=== PATIENT | female | born 1980 | race Caucasian/White ===

== ENCOUNTER 2018-01-20 12:27 | Outpatient (CLI) | payer MEDICAID, SELFPAY ==
[2018-01-20 12:31] VITALS: BP 118/72; PULSE 71; RESP 16; TEMP 35.9; O2SAT 100
--- NOTE | 2018-01-20 13:30 | DI.RAD_ITS ---
SYMPTOMS/DIAGNOSIS: SACROILIAC JOINT DYSFUNCTION PAIN CLINIC SACROILIAC JOINT: Fluoroscopy Time: 38.3 sec Fluoroscopy was utilized by Dr. Linares during the performance of a right sacroiliac joint injection. Please refer to the procedure report for complete details.
--- NOTE | 2018-01-20 13:30 | PDOC.PAIN ---
Pain Clinic Procedure Note Current Active Problems Problem Status Onset Sacroiliitis Chronic INTRA-ARTICULAR SI JOINT INJECTION ANN PARTIDA has been referred to the [facility] for intra-articular SI joint injection. COMMENTS: Right sided sacral pain Patient was interviewed and the medical record reviewed. There were no medical, pharmacologic, radiographic or other structural contraindications to attempting fluoroscopically guided intra-articular SI joint injection. Risks and expected side effects as well as potential benefit of the procedure were reviewed and voiced concerns addressed. The printed consent form was signed and witnessed. Standard time-out procedure was performed. Patient was placed in the prone position on the fluoroscopy table and automated blood pressure cuff and pulse oximeter applied. The skin entry point for approaching {right/ } SI joints was identified under the most advantageous fluoroscopic view and marked. Following thorough Chlorhexadine preparation of the skin and draping and 1% lidocaine infiltration of the skin entry point and subcutaneous tissues, a 22 gauge spinal needle was placed under fluoroscopic guidance into {right} SI joints was identified under the most advantageous fluoroscopic view and marked. Following thorough Chlorhexadine preparation of the skin and draping and 1% lidocaine infiltration of the skin entry point and subcutaneous tissues, a 22 gauge spinal needle was placed under fluoroscopic guidance into { right } SI joint. Intra-articular placement was confirmed by a clear arthrogram resulting from the injection of 0.25ml Omnipaque 240, 1ml 0.5% bupivacaine, and half ml (40mg) of 80mg concentration Depomedrol were injected intra-articularily with an initial reproduction of a significant component of the usual pain. Vital signs were stable throughout the procedure and were as recorded in the docflowsheet by the nursing staff. If given, dosages of intravenous drugs for anxiolysis and analgesia were documented in MAR. Follow up plans and appointments were discussed with the patient. Post procedure instruction was given as documented in nursing documentation and having met discharge criteria, and was discharged from the [facility]. COMMENTS: Pain went from 6/10 to 0/10. Follow-up as needed. Repeat as needed. CC: HALEY HUTSON
--- NOTE | 2018-01-20 13:33 | PDOC.PAIN_ITS ---
Pain Clinic Procedure Note Current Active Problems Problem Status Onset Sacroiliitis Chronic INTRA-ARTICULAR SI JOINT INJECTION ANN PARTIDA has been referred to the [facility] for intra- articular SI joint injection. COMMENTS: Right sided sacral pain Patient was interviewed and the medical record reviewed. There were no medical , pharmacologic, radiographic or other structural contraindications to attempting fluoroscopically guided intra-articular SI joint injection. Risks and expected side effects as well as potential benefit of the procedure were reviewed and voiced concerns addressed. The printed consent form was signed and witnessed. Standard time-out procedure was performed. Patient was placed in the prone position on the fluoroscopy table and automated blood pressure cuff and pulse oximeter applied. The skin entry point for approaching {right/ } SI joints was identified under the most advantageous fluoroscopic view and marked. Following thorough Chlorhexadine preparation of the skin and draping and 1% lidocaine infiltration of the skin entry point and subcutaneous tissues, a 22 gauge spinal needle was placed under fluoroscopic guidance into {right} SI joints was identified under the most advantageous fluoroscopic view and marked. Following thorough Chlorhexadine preparation of the skin and draping and 1% lidocaine infiltration of the skin entry point and subcutaneous tissues, a 22 gauge spinal needle was placed under fluoroscopic guidance into { right } SI joint. Intra-articular placement was confirmed by a clear arthrogram resulting from the injection of 0.25ml Omnipaque 240, 1ml 0.5% bupivacaine, and half ml (40mg) of 80mg concentration Depomedrol were injected intra- articularily with an initial reproduction of a significant component of the usual pain. Vital signs were stable throughout the procedure and were as recorded in the docflowsheet by the nursing staff. If given, dosages of intravenous drugs for anxiolysis and analgesia were documented in MAR. Follow up plans and appointments were discussed with the patient. Post procedure instruction was given as documented in nursing documentation and having met discharge criteria, and was discharged from the [facility]. COMMENTS: Pain went from 6/10 to 0/10. Follow-up as needed. Repeat as needed. CC: HALEY HUTSON
[2018-01-20] MEDS: Omnipaque 240 MG/ML 50 ML BTL IJ (13:41)
[2018-01-20] MEDS: methylPREDNISolone ACETATE 80 MG/ML VIAL IJ (13:41)
[2018-01-20 13:42] VITALS: BP 116/65; RESP 16; O2SAT 100
== END 2018-01-20 12:47 ==
PROVIDERS: PCP Family Medicine; Visit Provider Anesthesiology Pain Medicine
DX: M46.1 Sacroiliitis, not elsewhere classified (principal); G89.29 Other chronic pain
CPT/HCPCS: 27096; 72200; J1040; Q9967

== ENCOUNTER 2018-02-09 09:25 | Outpatient (CLI) | payer MEDICAID, SELFPAY ==
--- NOTE | 2018-02-09 06:00 | DI.RAD_ITS ---
SYMPTOM/DIAGNOSIS: LUMBAR RADICULOPATHY C-ARM: Fluoroscopy Time: 37.7 seconds Fluoroscopy was provided for guidance with lumbar spine pain clinic injection. Please see procedure note for details.
[2018-02-09 09:35] VITALS: BP 104/68; PULSE 79; RESP 18; TEMP 35.8; O2SAT 100
[2018-02-09] MEDS: methylPREDNISolone ACETATE 40 MG/ML VIAL IJ (10:30)
--- NOTE | 2018-02-09 10:42 | PDOC.PAIN ---
Pain Clinic Procedure Note Current Active Problems Problem Status Onset Lumbar radicular syndrome Chronic LUMBAR / SACRAL TRANSFORAMINAL INJECTION ANN PARTIDA has been referred to the [facility] for a transforaminal nerve root block and steroid injection. COMMENT: Patient has back pain radiating around her hip down her leg below the knee but not into the foot. She had one SI injection which only gave her very transient relief. Today the plan is to proceed with a right L5 transforaminal injection. She has moderate to severe stenosis on the right at L5 Patient was interviewed and the medical record reviewed. There were no medical, pharmacologic, radiographic or other structural contraindications to attempting fluoroscopically guided transforaminal nerve root block and epidural steroid injection. Risks and expected side effects as well as potential benefit of the procedure were reviewed and voiced concerns addressed. The printed consent form was signed and witnessed. Standard time-out procedure was performed. Patient was placed in the prone position on the fluoroscopy table and automated blood pressure cuff and pulse oximeter applied. Fluoroscopy was utilized to identify the {right/} neural foramen between L5 and S1 . A skin zeenat was made for the needle insertion site. A Chlorhexadine prep was carried out, and sterile drapes were applied. Local anesthesia was achieved in the skin and subcutaneous tissues. A 5 inch 22 gauge curved tip spinal needle was then inserted, advanced with fluoroscopic guidance into the neural foramen, confirmed on the lateral view. After negative aspiration, 2 ml of Omnipaque 240 was injected confirming position in A/P and lateral views. This showed a good spread of dye transforaminally into the epidural space. There was no vascular update with contrast injection under continuous fluoroscopy and digital substraction. 40 mg of Depo-Medrol was injected, followed by 0.5 ml of 0.5 % bupivacaine flush for the nerve root block, as well. There was no unusual discomfort expressed.The needle was withdrawn. The patient tolerated the procedure well. A Band-Aid was applied. Vital signs were stable throughout the procedure and were as recorded in nursing records. If given, dosages of intravenous drugs for anxiolysis and analgesia were documented in nursing records. Follow up plans and appointments were discussed. Post procedure instruction was given as documented in nursing records and patient was discharged in the care of an identified p d driver. COMMENTS: Pain went from 09/27-06/27. Patient will follow-up as needed. Could repeat as needed if repeated would use a 7 inch needle. If not improving consider surgical evaluation. CC: HALEY HUTSON
--- NOTE | 2018-02-09 10:46 | PDOC.PAIN_ITS ---
Pain Clinic Procedure Note Current Active Problems Problem Status Onset Lumbar radicular syndrome Chronic LUMBAR / SACRAL TRANSFORAMINAL INJECTION ANN PARTIDA has been referred to the [facility] for a transforaminal nerve root block and steroid injection. COMMENT: Patient has back pain radiating around her hip down her leg below the knee but not into the foot. She had one SI injection which only gave her very transient relief. Today the plan is to proceed with a right L5 transforaminal injection. She has moderate to severe stenosis on the right at L5 Patient was interviewed and the medical record reviewed. There were no medical , pharmacologic, radiographic or other structural contraindications to attempting fluoroscopically guided transforaminal nerve root block and epidural steroid injection. Risks and expected side effects as well as potential benefit of the procedure were reviewed and voiced concerns addressed. The printed consent form was signed and witnessed. Standard time-out procedure was performed. Patient was placed in the prone position on the fluoroscopy table and automated blood pressure cuff and pulse oximeter applied. Fluoroscopy was utilized to identify the {right/} neural foramen between L5 and S1 . A skin zeenat was made for the needle insertion site. A Chlorhexadine prep was carried out, and sterile drapes were applied. Local anesthesia was achieved in the skin and subcutaneous tissues. A 5 inch 22 gauge curved tip spinal needle was then inserted, advanced with fluoroscopic guidance into the neural foramen, confirmed on the lateral view. After negative aspiration, 2 ml of Omnipaque 240 was injected confirming position in A/P and lateral views. This showed a good spread of dye transforaminally into the epidural space. There was no vascular update with contrast injection under continuous fluoroscopy and digital substraction. 40 mg of Depo-Medrol was injected, followed by 0.5 ml of 0.5 % bupivacaine flush for the nerve root block, as well. There was no unusual discomfort expressed.The needle was withdrawn. The patient tolerated the procedure well. A Band-Aid was applied. Vital signs were stable throughout the procedure and were as recorded in nursing records. If given, dosages of intravenous drugs for anxiolysis and analgesia were documented in nursing records. Follow up plans and appointments were discussed. Post procedure instruction was given as documented in nursing records and patient was discharged in the care of an identified tow bar driver. COMMENTS: Pain went from 09/27-06/27. Patient will follow-up as needed. Could repeat as needed if repeated would use a 7 inch needle. If not improving consider surgical evaluation. CC: HALEY HUTSON
[2018-02-09] MEDS: Bupivacaine 0.5% Pres-Free 30 ML VIAL IJ (10:53)
[2018-02-09] MEDS: Omnipaque 240 MG/ML 50 ML BTL IJ (10:53)
[2018-02-09 10:54] VITALS: BP 114/64; PULSE 64; RESP 15; O2SAT 100
== END 2018-02-09 09:45 ==
PROVIDERS: PCP Family Medicine; Visit Provider Anesthesiology Pain Medicine
DX: M54.16 Radiculopathy, lumbar region (principal); G89.29 Other chronic pain
CPT/HCPCS: 64483; 72100; J1030; Q9967

== ENCOUNTER 2018-03-03 09:45 | Outpatient (CLI) | payer MEDICAID, SELFPAY ==
--- NOTE | 2018-03-03 06:00 | DI.RAD_ITS ---
SYMPTOMS/DIAGNOSIS: LUMBAR RADICULOPATHY, TRANSFORAMINAL EPIDURAL STEROID INJECTION C-ARM FLUOROSCOPY: Fluoroscopy Time: 43.6 sec, 34.22 mGy C-arm fluoroscopy was utilized by Dr. Linares during reported transforaminal epidural steroid injection. Hardcopy shows injection in the transforaminal region at what appears to be L 5 - S 1 on the right.
[2018-03-03 10:08] VITALS: BP 94/68; PULSE 58; RESP 18; TEMP 35.6; O2SAT 100
--- NOTE | 2018-03-03 10:59 | PDOC.PAIN ---
Pain Clinic Procedure Note Current Active Problems Problem Status Onset Lumbar radicular syndrome Chronic LUMBAR / SACRAL TRANSFORAMINAL INJECTION ANN PARTIDA has been referred to the [facility] for a transforaminal nerve root block and steroid injection. COMMENTS: Patient has no pain with severe stenosis at L5. She had one previous transforaminal injection which gave her very transient relief Patient was interviewed and the medical record reviewed. There were no medical, pharmacologic, radiographic or other structural contraindications to attempting fluoroscopically guided transforaminal nerve root block and epidural steroid injection. Risks and expected side effects as well as potential benefit of the procedure were reviewed and voiced concerns addressed. The printed consent form was signed and witnessed. Standard time-out procedure was performed. Patient was placed in the prone position on the fluoroscopy table and automated blood pressure cuff and pulse oximeter applied. Fluoroscopy was utilized to identify the {right} neural foramen between L5 and S1 . A skin zeenat was made for the needle insertion site. A Chlorhexadine prep was carried out, and sterile drapes were applied. Local anesthesia was achieved in the skin and subcutaneous tissues. A 22 gauge curved tip spinal needle was then inserted, advanced with fluoroscopic guidance into the neural foramen, confirmed on the lateral view. After negative aspiration, 2 ml of Omnipaque 240 was injected confirming position in A/P and lateral views. This showed a good spread of dye transforaminally into the epidural space. There was no vascular update with contrast injection under continuous fluoroscopy and digital substraction. 60 mg of Depo-Medrol was injected, followed by 0.5 ml of 0.5% bupivacaine flush for the nerve root block, as well. There was no unusual discomfort expressed.The needle was withdrawn. The patient tolerated the procedure well. A Band-Aid was applied. Vital signs were stable throughout the procedure and were as recorded in nursing records. If given, dosages of intravenous drugs for anxiolysis and analgesia were documented in nursing records. Follow up plans and appointments were discussed. Post procedure instruction was given as documented in nursing records and patient was discharged in the care of an identified stock driver. COMMENTS: Pain went from 10/27-06/27. If she gets good long-lasting relief can repeat otherwise she will follow-up at [facility] for surgical evaluation CC: HALEY HUTSON
[2018-03-03] MEDS: methylPREDNISolone ACETATE 40 MG/ML VIAL IJ (11:10)
[2018-03-03] MEDS: Omnipaque 240 MG/ML 50 ML BTL IJ (11:10)
[2018-03-03] MEDS: Bupivacaine 0.5% Pres-Free 10 ML VIAL IJ (11:11)
[2018-03-03 11:12] VITALS: BP 106/61; PULSE 66; RESP 15; O2SAT 100
--- NOTE | 2018-03-03 11:12 | PDOC.PAIN_ITS ---
Pain Clinic Procedure Note Current Active Problems Problem Status Onset Lumbar radicular syndrome Chronic LUMBAR / SACRAL TRANSFORAMINAL INJECTION ANN PARTIDA has been referred to the [facility] for a transforaminal nerve root block and steroid injection. COMMENTS: Patient has no pain with severe stenosis at L5. She had one previous transforaminal injection which gave her very transient relief Patient was interviewed and the medical record reviewed. There were no medical , pharmacologic, radiographic or other structural contraindications to attempting fluoroscopically guided transforaminal nerve root block and epidural steroid injection. Risks and expected side effects as well as potential benefit of the procedure were reviewed and voiced concerns addressed. The printed consent form was signed and witnessed. Standard time-out procedure was performed. Patient was placed in the prone position on the fluoroscopy table and automated blood pressure cuff and pulse oximeter applied. Fluoroscopy was utilized to identify the {right} neural foramen between L5 and S1 . A skin zeenat was made for the needle insertion site. A Chlorhexadine prep was carried out, and sterile drapes were applied. Local anesthesia was achieved in the skin and subcutaneous tissues. A 22 gauge curved tip spinal needle was then inserted, advanced with fluoroscopic guidance into the neural foramen, confirmed on the lateral view. After negative aspiration, 2 ml of Omnipaque 240 was injected confirming position in A/P and lateral views. This showed a good spread of dye transforaminally into the epidural space. There was no vascular update with contrast injection under continuous fluoroscopy and digital substraction. 60 mg of Depo-Medrol was injected, followed by 0.5 ml of 0.5% bupivacaine flush for the nerve root block, as well. There was no unusual discomfort expressed.The needle was withdrawn. The patient tolerated the procedure well. A Band-Aid was applied. Vital signs were stable throughout the procedure and were as recorded in nursing records. If given, dosages of intravenous drugs for anxiolysis and analgesia were documented in nursing records. Follow up plans and appointments were discussed. Post procedure instruction was given as documented in nursing records and patient was discharged in the care of an identified transit driver. COMMENTS: Pain went from 10/27-06/27. If she gets good long-lasting relief can repeat otherwise she [place] [facility] [place] CC: HALEY HUTSON
== END 2018-03-03 10:05 ==
PROVIDERS: PCP Family Medicine; Visit Provider Anesthesiology Pain Medicine
DX: M54.16 Radiculopathy, lumbar region (principal); G89.29 Other chronic pain
CPT/HCPCS: 64483; 72100; J1030; Q9967

== ENCOUNTER 2018-04-29 00:24 | Outpatient (CLI) | payer MEDICAID, SELFPAY ==
--- NOTE | 2018-04-29 15:21 | DI.MRI_ITS ---
SYMPTOMS/DIAGNOSIS: RADICULAR PAIN, H/O RIGHT FORAMINAL NARROWING AT L5-S1 MRI OF THE LUMBAR SPINE: Comparison is made with outside study of January,. T1, T2 and STIR sagittal and T1 and T2 axial sequences were performed. The vertebral bodies and discs are well maintained in height. At L5-S1, there is again noted to be an asymmetric endplate osteophyte encroaching into the left neural foramen. This does not appear significantly changed. There are mild facet degenerative changes contributing to the neural foraminal narrowing. There is no significant left neural foraminal narrowing. There is no evidence of disc herniation at any level. There is no central canal stenosis. IMPRESSION: Stable moderate to severe narrowing of the right neural foramen at L5-S1 secondary to a combination of facet degenerative changes and laterally projecting endplate osteophyte.
== END 2018-04-29 00:44 ==
PROVIDERS: PCP Family Medicine; Visit Provider Nurse Practitioner Family
DX: M54.17 Radiculopathy, lumbosacral region (principal); M47.27 Other spondylosis with radiculopathy, lumbosacral region
CPT/HCPCS: 72148

== ENCOUNTER 2018-07-20 12:43 | Outpatient (REF) | payer MEDICAID, SELFPAY ==
[2018-07-23 11:34] LABS: 6-monoacetylmorphine Not Detected ng/mL (Cutoff: 25); Amphetamines Negative ng/mL (Cutoff: 500); Barbiturates Negative ng/mL (Cutoff: 200); Benzodiazepines Presumptive Positive ng/mL (Cutoff: 100); Buprenorphine Not Detected ng/mL (Cutoff: 5); Cocaine Negative ng/mL (Cutoff: 150); Codeine Not Detected ng/mL (Cutoff: 25); Comment Normal; Creatinine, U 79.9 mg/dL; Dihydrocodeine Not Detected ng/mL (Cutoff: 25); EDDP Not Detected ng/mL (Cutoff: 25); Fentanyl Not Detected ng/mL (Cutoff: 2); Hydrocodone Present ng/mL (Cutoff: 25); Hydromorphone Not Detected ng/mL (Cutoff: 25); Hydromorphone-3-beta-glucuroni Not Detected ng/mL (Cutoff: 100); Meperidine Not Detected ng/mL (Cutoff: 25); Methadone Not Detected ng/mL (Cutoff: 25); Morphine Not Detected ng/mL (Cutoff: 25); N-desmethyltapentadol Not Detected ng/mL (Cutoff: 50); Naloxone Not Detected ng/mL (Cutoff: 25); Norbuprenorphine Not Detected ng/mL (Cutoff: 5); Norfentanyl Not Detected ng/mL (Cutoff: 2); Norhydrocodone Present ng/mL (Cutoff: 25); Normeperidine Not Detected ng/mL (Cutoff: 25); Noroxycodone Not Detected ng/mL (Cutoff: 25); Noroxymorphone Not Detected ng/mL (Cutoff: 25); O-desmethyltramadol Not Detected ng/mL (Cutoff: 25); Phencyclidine Negative ng/mL (Cutoff: 25); Propoxyphene Not Detected ng/mL (Cutoff: 25); Specific Gravity 1.009; Tapentadol Not Detected ng/mL (Cutoff: 25); Tetrahydrocannabinol Negative ng/mL (Cutoff: 50); Tramadol Not Detected ng/mL (Cutoff: 25); pH 7.4
[2018-07-23 11:45] LABS: 2-OH-Ethyl-Flurazepam Negative ng/mL (Cutoff: 100); 7-NH-Clonazepam Negative ng/mL (Cutoff: 100); 7-NH-Flunitrazepam Negative ng/mL (Cutoff: 50); Alpha OH-Alprazolam Negative ng/mL (Cutoff: 100); Alpha-OH-Triazolam Negative ng/mL (Cutoff: 100); Benzodiazepines Interpretation Positive.; Lorazepam Negative ng/mL (Cutoff: 100); Temazepam 480 ng/mL (Cutoff: 100)
== END 2018-07-20 13:03 ==
LOC: LBN 12:43
PROVIDERS: PCP Family Medicine; Visit Provider Nurse Practitioner Family
DX: Z79.891 Long term (current) use of opiate analgesic (principal)
CPT/HCPCS: 80307; 80364; 80346

== ENCOUNTER 2018-07-27 12:29 | Outpatient (CLI) | payer MEDICAID, SELFPAY ==
[2018-07-27 12:36] VITALS: BP 118/69; PULSE 95; RESP 20; TEMP 36; O2SAT 100
--- NOTE | 2018-07-27 13:06 | DI.RAD_ITS ---
SYMPTOMS/DIAGNOSIS: LUMBAR SPONDYLOSIS PAIN CLINIC LUMBAR SPINE: Fluoroscopy Time: 27.1 sec Fluoroscopy was utilized by Dr. Berry during the performance of a lumbar medial branch block. Please refer to the procedure report for complete details.
--- NOTE | 2018-07-27 13:20 | PDOC.PAIN ---
Pain Clinic Procedure Note Current Active Problems Problem Status Onset Spondylosis of lumbar region without myelopathy or radiculopathy Acute Lumbar/Sacral Medial Branch Blocks ANN PARTIDA has been referred to the [facility] for lumbar/sacral medial branch blocks. COMMENTS: I reviewed Ms. Heredia's note from our clinic dated 07/20/18. Patient was interviewed and the medical record reviewed. There were no medical, pharmacologic, radiographic or other structural contraindications to attempting fluoroscopically guided local anesthetic lumbar/sacral medial branch blocks. Risks and expected side effects as well as potential benefit of the procedure were reviewed and voiced concerns addressed. The printed consent form was signed and witnessed. Standard time-out procedure was performed. Patient was placed in the prone position on the fluoroscopy table and automated blood pressure cuff and pulse oximeter applied. The skin entry points for approaching the anatomic target points of the segmental medial branches of right L3-L5DR were identified with anfluoroscopy and marked. Following thorough Chlorhexadine preparation of the skin and draping and 1% lidocaine infiltration of the skin entry points and subcutaneous tissues, a 22 gauge 5 spinal needle was placed under fluoroscopic guidance down on to the target point for each respective segmental medial branch.Position was confirmed in A/P, oblique and lateral views with 0.25ml of omnipaque 240. At this point .5ml of 0.5% Bupivacaine was injected at each segmental nerve. Vital signs were stable throughout the procedure and were as recorded in the docflowsheet by the nursing staff. Follow up plans and appointments were discussed and was instructed to keep careful note of how the usual pain was modified by these injections. Specifically was asked to keep a pain diary for the next 24 hours using a numeric pain scale of 0-10 and report these results at the follow-up visit. Post procedure instruction was given as documented in the nursing documentation and having met discharge criteria. Patient was discharged from the [facility]. Based on the medial branches blocked today, if the patient has adequate relief and we are able to proceed to radiofrequency ablation, the treatment should result in the denervation of the right L4-L5 and L5-S1 FACET JOINTS. We would expect to denervate a total of 2 facets during the radiofrequency ablation. COMMENTS:She will call back with her 1-4 hour post-procedure pain scores for the right side of her low back. CC: Ministerio Paredes
[2018-07-27 13:25] VITALS: BP 114/61; PULSE 75; RESP 14; O2SAT 100
[2018-07-27] MEDS: Bupivacaine 0.5% Pres-Free 10 ML VIAL IJ (13:26)
[2018-07-27] MEDS: Omnipaque 240 MG/ML 50 ML BTL IJ (13:27)
== END 2018-07-27 12:49 ==
PROVIDERS: PCP Family Medicine; Visit Provider Preventive Medicine Occupational Medicine
DX: M47.816 Spondylosis without myelopathy or radiculopathy, lumbar region (principal)
CPT/HCPCS: 64493; 64494; 72100; Q9967

== ENCOUNTER 2018-08-10 11:53 | Outpatient (CLI) | payer MEDICAID, SELFPAY ==
[2018-08-10 12:07] VITALS: BP 104/68; PULSE 72; RESP 18; TEMP 35.7; O2SAT 100
--- NOTE | 2018-08-10 12:40 | DI.RAD_ITS ---
SYMPTOMS/DIAGNOSIS: LUMBAR SPONDYLOSIS PAIN CLINIC LUMBAR SPINE: Fluoroscopy Time: 40.2 sec., 12.81 mGy. C-arm fluoroscopy was provided for guidance with lumbar spine Pain Clinic injections. Please see procedure note for details.
--- NOTE | 2018-08-10 12:41 | PDOC.PAIN_ITS ---
Pain Clinic Procedure Note Current Active Problems Problem Status Onset Spondylosis of lumbar region without myelopathy or radiculopathy Acute Lumbar/Sacral Medial Branch Blocks #2 ANN PARTIDA has been referred to the [facility] for lumbar/sacral medial branch blocks. COMMENTS: Patient was interviewed and the medical record reviewed. There were no medical, pharmacologic, radiographic or other structural contraindications to attempting fluoroscopically guided local anesthetic lumbar/sacral medial branch blocks. Risks and expected side effects as well as potential benefit of the procedure were reviewed and voiced concerns addressed. The printed consent form was signed and witnessed. Standard time-out procedure was performed. Patient was placed in the prone position on the fluoroscopy table and automated blood pressure cuff and pulse oximeter applied. The skin entry points for ap proaching the anatomic target points of the segmental medial branches of right L3-L5DR were identified with anfluoroscopy and marked. Following thorough Chlorhexadine preparation of the skin and draping and 1% lidocaine infiltration of the skin entry points and subcutaneous tissues, a 22 gauge 5spinal needle was placed under fluoroscopic guidance down on to the target point for each respective segmental medial branch.Position was confirmed in A/P, oblique and lateral views with 0.25ml of omnipaque 240. At this point I injected 0.5cc of 2% Lidocaine at each segmental nerve. Vital signs were stable throughout the procedure and were as recorded in the docflowsheet by the nursing staff. Follow up plans and appointments were discussed and was instructed to keep careful note of how the usual pain was modified by these injections. Specifically was asked to keep a pain diary for the next 24 hours using a numeric pain scale of 0-10 and report these results at the follow-up visit. Post procedure instruction was given as documented in the nursing documentation and having met discharge criteria. Patient was discharged from the [facility]. Based on the medial branches blocked today, if the patient has adequate relief and we are able to proceed to radiofrequency ablation, the treatment should result in the denervation of the right L4-L5 and L5-P8CAOBD JOINTS. We would expect to denervate a total of 2 facets during the radiofrequency ablation. COMMENTS: She will contact us with her 1-4 hour post-procedure pain scores. CC: Ministerio Paredes
[2018-08-10 12:46] VITALS: BP 100/73; PULSE 70; RESP 21; O2SAT 99
[2018-08-10] MEDS: Omnipaque 240 MG/ML 50 ML BTL IJ (12:51)
[2018-08-10] MEDS: Lidocaine 2% Pres-Free 5 ML VIAL IJ (12:53)
== END 2018-08-10 12:13 ==
PROVIDERS: PCP Family Medicine; Visit Provider Preventive Medicine Occupational Medicine
DX: M47.816 Spondylosis without myelopathy or radiculopathy, lumbar region (principal)
CPT/HCPCS: 64493; 64494; 72100; Q9967

== ENCOUNTER 2018-08-17 08:25 | Outpatient (CLI) | payer MEDICAID, SELFPAY ==
[2018-08-17 08:33] VITALS: BP 104/66; PULSE 79; RESP 18; TEMP 36.1; O2SAT 100
[2018-08-17] MEDS: Midazolam 2 MG/2 ML VIAL IVP (09:15)
[2018-08-17] MEDS: Lactated Ringers 1,000 ML 80 ML IV (09:15)
[2018-08-17] MEDS: fentaNYL 100 MCG/2 ML VIAL IVP ×2 (09:15→09:20)
[2018-08-17 09:45] VITALS: BP 132/67; PULSE 77; RESP 22; O2SAT 97
--- NOTE | 2018-08-17 09:49 | PDOC.PAIN_ITS ---
Pain Clinic Procedure Note Current Active Problems Problem Status Onset Spondylosis of lumbar region without myelopathy or radiculopathy Acute LUMBAR/SACRAL MEDIAL BRANCH RADIOFREQUENCY USING THE COOLIEF MACHINE ANN PARTIDA has been [facility] for radiofrequency treatment of chronic axial back pain. ANN has had long standing back pain thought to be facet joint generated and which has been refractory to other therapies. Local anesthetic medial branch blocks or intra-articular facet joint injections resulted in ANN reporting reduction of the usual axial component of pain for at least the duration of the local anesthetic effect. COMMENTS:She did great with the 2 LMBBs (08/10/18 and 07/27/18) Patient was interviewed and the medical record reviewed. There were no medical, pharmacologic, radiographic or other structural contraindications to attempting fluoroscopically guided radiofrequency treatment. Risks and expected side effects as well as potential benefit of the procedure were reviewed and voiced concerns addressed. The printed consent form was signed and witnessed. Standard time-out procedure was performed. Patient was placed in the prone position on the fluoroscopy table and automated blood pressure cuff and pulse oximeter applied. The skin entry points for approaching the anatomic target points of the segmental medial branches of right L3, L4, L5DR, and S1 (lateral branch)) were identified with fluoroscopy and marked. Following thorough Chlorhexadine preparation of the skin and draping and 1% lidocaine infiltration of the skin entry points and subcutaneous tissues, a single 18 guage curved 15 cm 10mm active tip radiofrequency cannula was placed under fluoroscopic guidance along or across the anatomic course of each respective segmental medial branch. Each placement was stimulated at 50Hz and les then 0.5V for medial branch sensory localization and the at 2Hz and up to 3 times the sensory voltage without any evidence of distal myotomal stimulation. 1cc of 1% ;idocaine was injected at each site. At each placement a continuous mode radiofrequency treatment was done at 90 degrees C for 90secs and then rotated 180degrees and then repeated. This radiofrequency treatment should result in the denervation of the right L4- L5 and L5-S1 FACET JOINTS.~ A total of 2 facets were expected to be denervated from today's treatment. Vital signs were stable throughout the procedure and were as recorded in the docflowsheet by the nursing staff. If given, dosages of intravenous drugs for anxiolysis and analgesia were documented in the Medication Administration Record (MAR). Follow up plans and appointments were discussed. Post procedure instruction was given as documented in the nursing documentation and having met discharge criteria, ANN was discharged from the [facility]. COMMENTS: If she obtains pain relief for at least 6 months, we can repeat the RFA without repeating the LMBBs. CC: Ministerio Paredes
--- NOTE | 2018-08-17 09:50 | DI.RAD_ITS ---
SYMPTOM/DIAGNOSIS: RT LUMBAR FREQUENCY ABLATION, LUMBAR SPONDYLOSIS C-ARM: Fluoroscopy Time: 60.4 seconds Fluoroscopy was utilized by Dr. Berry during radiofrequency ablation. Please refer to the procedure report for complete details.
[2018-08-17] MEDS: Lidocaine 2% Pres-Free 5 ML VIAL IJ (09:57)
[2018-08-17] MEDS: Bupivacaine 0.5% Pres-Free 10 ML VIAL IJ (09:57)
[2018-08-17] MEDS: methylPREDNISolone ACETATE 40 MG/ML VIAL IJ (09:57)
== END 2018-08-17 08:45 ==
PROVIDERS: PCP Family Medicine; Visit Provider Preventive Medicine Occupational Medicine
DX: M47.816 Spondylosis without myelopathy or radiculopathy, lumbar region (principal)
CPT/HCPCS: 64635; 64636; 72100; J1030; J2250; J3010